=== PATIENT | female | born 1965 | race Two or more races ===

== ENCOUNTER 2017-06-08 13:16 | Emergency (ER) | payer MEDICAID ==
[~2017-06-08] VITALS: Ht 152.4 cm; Wt 86.0 kg
[2017-06-08 13:26] VITALS: BP 134/61
== END 2017-06-08 15:13 | disposition home or self-care (01) ==
LOC: ER 13:20
DX: H10.32 Unspecified acute conjunctivitis, left eye (principal); J45.909 Unspecified asthma, uncomplicated; Z87.440 Personal history of urinary (tract) infections